=== PATIENT | female | born 1985 | race Caucasian/White ===

== ENCOUNTER 2022-07-21 08:34 | Outpatient (CLI) | payer SELFPAY ==
--- NOTE | 2022-07-21 08:45 | CRLHL7_ITS ---
For Patients: As a result of the Cures Act, medical imaging exams and procedure reports are released immediately into your electronic medical record. You may view this report before your referring provider. If you have questions, please contact your health care provider. INDICATION: First trimester scan, establish dates. TECHNIQUE: Real-time hurst-scale imaging of the pelvis was performed. FINDINGS: Sonographic imaging demonstrates a single living intrauterine gestation. The embryo demonstrates a regular cardiac rate measuring 171 beats per minute. The embryo`s crown-rump length measurement of 2.1 cm corresponds to a gestational age of 8 weeks 5 days with a sonographic due date of 02/25/23. There is a normal-appearing yolk sac. Right ovary measures 3.8 x 2.6 x 3.3 centimeters right ovarian corpus luteum cyst. Left ovary appears unremarkable with amount of fluid adjacent to the right ovary. IMPRESSION: Early intrauterine . Gestational age calculated at 8 weeks 5 days with a sonographic due date of 02/25/2023. Dictated by Julia Mccarty MD @ 07/21/2022 9:58:14 AM (Electronically Signed)
== END 2022-07-21 08:35 | disposition home or self-care (01) ==
LOC: US 08:36
PROVIDERS: PCP Family Medicine; Visit Provider Advanced Practice Midwife
DX: Z34.91 Encounter for supervision of normal pregnancy, unspecified, first trimester (principal); Z3A.08 8 weeks gestation of pregnancy
CPT/HCPCS: 76817

== ENCOUNTER 2022-07-21 09:45 | Outpatient (CLI) | payer BC, SELFPAY ==
[2022-07-21 14:25] LABS: Hepatitis B Surface Antigen* Negative (Negative)
[2022-07-21 14:28] LABS: HIV 1/2/P24 Combo Screen* Negative (Negative)
[2022-07-21 14:42] LABS: Hepatitis C Virus Antibody* Negative (Negative)
[2022-07-23 06:28] LABS: Rubella Antibody IgG 30.2 IU/mL
[2022-07-23 09:12] LABS: Rapid Plasma Reagin (RPR) Non Reactive (Non Reactive)
== END 2022-07-21 09:46 | disposition home or self-care (01) ==
PROVIDERS: PCP Family Medicine; Visit Provider Advanced Practice Midwife
DX: Z34.81 Encounter for supervision of other normal pregnancy, first trimester (principal); Z3A.08 8 weeks gestation of pregnancy
CPT/HCPCS: 86592; 86703; 86762; 86787; 86803; 86850; 86900; 86901; 87086; 87340

== ENCOUNTER 2022-08-19 13:23 | Outpatient (CLI) | payer BC, SELFPAY ==
[2022-08-19 16:04] LABS: Chloride* 100 mmol/L (96-114)
[2022-08-19 16:05] LABS: Potassium* 3.7 mmol/L (3.6-5.1); Sodium* 133 mmol/L (135-149)
[2022-08-19 16:07] LABS: Creatinine* 0.5 mg/dL (0.5-1.5); Estimated Glomerular Filt Rate 125 ml/min
[2022-08-19 16:08] LABS: Blood Urea Nitrogen* 15 mg/dL (5-24); Calcium* 9.1 mg/dL (8.4-10.6); Carbon Dioxide* 28 mmol/L (20-32); Glucose* 95 mg/dL (60-115)
== END 2022-08-19 13:24 | disposition home or self-care (01) ==
LOC: NFLDREF 13:24
PROVIDERS: PCP Family Medicine; Visit Provider Obstetrics & Gynecology
DX: O09.529 Supervision of elderly multigravida, unspecified trimester (principal); Z3A.12 12 weeks gestation of pregnancy
CPT/HCPCS: 80048; 81420

== ENCOUNTER 2022-10-08 13:54 | Outpatient (CLI) | payer BC, SELFPAY | END 2022-10-08 13:55 | disposition home or self-care (01) | LOC: US 13:55 | PROVIDERS: PCP Family Medicine; Visit Provider Pediatrics Neonatal-Perinatal Medicine | DX: O09.522 Supervision of elderly multigravida, second trimester (principal); Z3A.19 19 weeks gestation of pregnancy | CPT/HCPCS: 76811 ==

== ENCOUNTER 2022-12-05 12:56 | Outpatient (CLI) | payer BC, SELFPAY ==
--- NOTE | 2022-12-05 13:00 | CRLHL7_ITS ---
For Patients: As a result of the Century Cures Act, medical imaging exams and procedure reports are released immediately into your electronic medical record. You may view this report before your referring provider. If you have questions, please contact your health care provider. INDICATION: Third trimester scan, evaluate growth. COMPARISON: 10/08/2022 TECHNIQUE: Real time hurst scale imaging of the fetus was performed. FINDINGS: Sonographic imaging demonstrates a single living intrauterine gestation. Fetus demonstrates a regular cardiac rate of 141 beats per minute. Fetus has a vertex position. The placenta lies posteriorly. Amniotic fluid volume appears normal and there is a single deepest vertical pocket: 7.1 cm. INGE 23.9 cm. The estimated weight is 1513gm which lies at the greater than 97th %. On the prior OB ultrasound exam dated 10/08/2022 the estimated weight was at the greater than 97th%. BPD, HC and ACR greater than 97th percentile. FL 29th percentile. The HC/AC ratio measures 1.06 range (0.97-1.18). IMPRESSION: Sonographic gestational age 30 weeks 4 days and sonographic due date 02/09/2023. Sonographic age 18 days ahead of the clinical age. Estimated weight greater than 97th percentile. BPD/HC/AC greater than 97th percentile. Four-quadrant INGE upper limits of normal measuring 23.9 cm. Dictated by Cj Rowley MD @ 12/05/2022 3:00:52 PM (Electronically Signed)
== END 2022-12-05 12:57 | disposition home or self-care (01) ==
LOC: US 12:57
PROVIDERS: PCP Family Medicine; Visit Provider Advanced Practice Midwife
DX: O09.523 Supervision of elderly multigravida, third trimester (principal); Z3A.28 28 weeks gestation of pregnancy
CPT/HCPCS: 76816; 86592; 87086

== ENCOUNTER 2022-12-16 12:53 | Outpatient (CLI) | payer BC, SELFPAY ==
--- NOTE | 2022-12-16 13:00 | CRLHL7_ITS ---
For Patients: As a result of the Century Cures Act, medical imaging exams and procedure reports are released immediately into your electronic medical record. You may view this report before your referring provider. If you have questions, please contact your health care provider. INDICATION: Third trimester scan, evaluate growth. COMPARISON: 12/05/2022 TECHNIQUE: Real time hurst scale imaging of the fetus was performed. FINDINGS: Sonographic imaging demonstrates a single living intrauterine gestation. Fetus demonstrates a regular cardiac rate of 139 beats per minute. Fetus has a vertex oblique position. The placenta lies posterior. Amniotic fluid volume appears normal and there is a single deepest vertical pocket: 5.5 cm. INGE 20.8 cm. The estimated weight is 1818gm which lies at the 96th %. On the prior OB ultrasound exam dated 12/05/2022 the estimated weight was at the greater than 97th%. BPD, HC, AC greater than 97th percentile. FL 14th percentile. The HC/AC ratio measures 1.09 range (0.96-1.12). IMPRESSION: Sonographic gestational age 32 weeks 4 days and sonographic due date 02/06/2023. Sonographic age is 21 days ahead of the clinical age. Estimated weight 96th percentile. BPD/HC/AC greater than 97th percentile. INGE 20.8 cm, normal. Dictated by Cj Rowley MD @ 12/16/2022 2:38:55 PM (Electronically Signed)
== END 2022-12-16 12:54 | disposition home or self-care (01) ==
LOC: US 12:54
PROVIDERS: Visit Provider Advanced Practice Midwife
DX: Z34.93 Encounter for supervision of normal pregnancy, unspecified, third trimester (principal); Z3A.32 32 weeks gestation of pregnancy
CPT/HCPCS: 76816

== ENCOUNTER 2023-02-06 11:00 | Outpatient (RCR) | payer BC, SELFPAY | END 2023-06-06 23:59 | disposition home or self-care (01) | PROVIDERS: PCP Family Medicine; Visit Provider Advanced Practice Midwife | DX: O34.82 Maternal care for other abnormalities of pelvic organs, second trimester (principal); N81.89 Other female genital prolapse; O26.892 Other specified pregnancy related conditions, second trimester; R10.2 Pelvic and perineal pain; M54.50 Low back pain, unspecified; Z51.89 Encounter for other specified aftercare | CPT/HCPCS: 97110; 97140; 97162; 97535 ==

== ENCOUNTER 2023-03-01 10:14 | Inpatient (IN) | payer BC, SELFPAY ==
[2023-03-01] VITALS (20 sets, daily range): BP systolic 129–158; BP diastolic 72–98; PULSE 56–85; RESP 16–18; TEMP 36.4–36.7; O2SAT 97; BMI 29.9
[2023-03-01 10:01] LABS: Amnisure Rom* POSITIVE
--- NOTE | 2023-03-01 11:23 | W.PM.LDBA ---
Subjective History of Present Illness Narrative: Marlen Mccord is a 37 yo at 40 2/7 weeks gestation being admitted to Labor and Delivery for PROM. She is supported by her , Karan. She reports that she woke up this morning with some mild cramping and noted a large gush of fluid around 630 am of clear/brownish/yellow fluid. She continues to leak clear fluid. Her full history and physical was dictated by Brittany Contreras CNM on 02/10/23. Please see this for details. OB PROBLEM LIST 1. History of pelvic floor weakness after last , PT referral: placed 07/31/22 2. AMA Level II ultrasound: WNL, elevated INGE Genetic Screening: [id number] negative 3. Elevated INGE, per Dr. Orr (WNL but higher range, 20.8) Recommended fluid check/growth at 28-30 weeks: US ordered 11/07 High normal fluid at 28 weeks, INGE 23.9. Discussed repeat in 1-2 weeks, Dr. Manning agreed with plan Follow up at 29 weeks: 20.8 4. Suspected Macrosomia. EFW 96% at 29.4 weeks. OB - Problem Based A/P Additional Plan (1) PROM (premature rupture of membranes): Status: Acute (2) 40 weeks gestation of : Status: Acute (3) AMA (advanced maternal age) multigravida 35+: Status: Acute Plan ASSESSMENT:? 37 at 40 2/7 weeks gestation? complicated by:?AMA, suspected macrosomia, pelvic floor weakness Labor type: Spontaneous, Early labor? Category 1 FHR pattern.?? Labor complicated by: PROM? GBS negative? ? PLAN:? 1. Routine intrapartum cares as ordered. Reviewed options including expectant management x12 hours, starting pitocin without exam, or cervical exam to start pitocin or cytotec. She prefers expectant management at this time. Will reevaluate plan this evening. ? 2. Monitoring per policy, intermittent? 3. Planning unmedicated . Desires water . Consent signed. Hep C negative. Candidate for analgesia of choice if desired.?? 4. Patient encouraged to reposition and ambulate to promote physiologic labor and . Encouraged to do labor warm up, nipple stim, or can consider membrane sweep to encourage labor. 5. Anticipate ? Delivery/Labor/Induction Plan Plan: expectant management OB Exam Physical Exam Vital signs: Temp Pulse Resp BP 97.8 F 67 16 134/87 03/01/23 10:55 03/01/23 09:52 03/01/23 10:55 03/01/23 09:52 Narrative: Vitals Reviewed Constitutional:? Alert and oriented x3 HEENT:? Normocephalic, atraumatic Neck:? Supple Lungs:? Clear to auscultation bilaterally Heart:? Regular rate and rhythm, no murmur, rub or gallop Abdomen:? Soft, nontender, and gravid. Vertex by Koko's, confirmed with bedside US. Extremities:? No edema or erythema Cervix: Deferred due to ROM NST: 125 bpm/moderate variability/15x15 accelerations/no decelerations/occasional contractions Detailed Labor and Delivery Exam Patient Gravid: Yes
[2023-03-01] MEDS: lidocaine HCL 2 % JELLY (TOP) STERILE 6 ML TOPICAL (16:45)
--- NOTE | 2023-03-01 16:55 | W.PM.OBVAGDE ---
OB Procedure Vag Delivery Mother Details Mother Details: The patient is a 37 year-old, 2, now Para 2, admitted on 03/01/23 at 40 2/7 weeks gestation. She was expectantly managed and encouraged labor with ambulation, miles circuit, and labor warm-ups. She started to have painful regular contractions about 1435 when she requested to enter the tub. : 2 Para: 2 Weeks Gestation: 40.2 Admission Date: 03/01/23 Additional Details Amniotic Membrane Status: SROM Amniotic Membrane Rupture Date: 03/01/23 Amniotic Membrane Rupture Time: 06:30 Amniotic Membrane Fluid Description: Meconium Stained (Light/Thin) and Yellow Analgesia/Anesthesia Type: None Waterbirth: Yes Pitcoin: No (Declined AMTSL) Intrapartal Events: Precipitous Labor <3 Hrs Labor Onset: 14:35 Complete: 15:56 Pushin:56 Heart: heart tones during second stage were assess via doptones during pushing, remained reassuring through contraction and after. Delivery Details Delivery Date: 03/01/23 Delivery Time: 16:15 Route of delivery: Gender: Male Infant Viability: Alive; Heart Rate Present Position at Delivery: OA Delivery Details: Patient was admitted for PROM. She progressed normally. SROM noted at 0630 with light meconium stained fluid. Patient was assumed complete with pushing at 1556. of a viable male at 1615 in hands and knees position over seat in the tub. Vertex delivered OA. Head was born underwater then mom brought her butt upward bringing head above water. Head was held to prevent re-submersion. No nuchal cord or shoulder. Body delivered easily and without incident. Mom was assisted to her back and her leg was lifted over Infant. He was then passed to mothers abdomen with a vigorous cry. Cord was clamped and cut at > 5 minutes. APGARS were 9 at one minute and 8 at five minutes respectively. Mouth was bulb suctioned. Intact placenta with a 3 vessel cord delivered spontaneously at 1637. Fundus firm. Small perineal abrasion identified, not bleeding, no repair. QBL 125 cc. Mother and baby stable; mother plans to breastfeed. weight pending. 1 Minute Interval Total Score: 9 5 Minute Interval Total Score: 8 Additional Details Shoulder Dystocia: No Placenta Delivery Time: 16:37 Placental Delivery Description: Spontaneous Procedure Done: Global Blood Loss: 125 Laceration: None Blood Loss Measurement Type: QBL Bakri Used: No Sponge/Need Count Correct: Yes Event Summary Status: Mother and were stable after delivery. Disposition: floor
[2023-03-01] MEDS: ACETAMINOPHEN 500 MG TABLET 1000 MG PO (17:56)
[2023-03-01 18:43] LABS: Hematocrit 36.3 % (33.0-51.0); Hemoglobin* 12.7 gm/dL (12.0-16.0); Mean Corpuscular HGB Conc 35 gm/dL (32-36); Mean Corpuscular Hemoglobin 33 pg (26-34); Mean Corpuscular Volume 93 fL (80-100); Platelet Count* 157 K/uL (140-440); Red Blood Count 3.91 m/uL (4.00-5.20); White Blood Count* 15.01 K/uL (4.50-11.00)
[2023-03-01 18:52] LABS: Slide Review Reflex No
[2023-03-01 18:59] LABS: Alanine Aminotransferase* 22 U/L (4-35); Aspartate Amino Transferase* 38 U/L (12-35); Blood Urea Nitrogen* 12 mg/dL (5-24); Creatinine* 0.6 mg/dL (0.5-1.5); Est. Creatinine Clearance* 132.02; Estimated Glomerular Filt Rate 120 ml/min
[2023-03-01] MEDS: IBUPROFEN 600 MG TABLET PO (23:06)
[2023-03-02 02:03] VITALS: BP 120/78; PULSE 81; RESP 16; O2SAT 94
[2023-03-02 05:29] VITALS: BP 127/84; PULSE 71; RESP 18; O2SAT 95
[2023-03-02] MEDS: DOCUSATE SODIUM 100 MG CAPSULE PO (07:46)
[2023-03-02] MEDS: ACETAMINOPHEN 500 MG TABLET 1000 MG PO (07:46)
[2023-03-02 07:58] VITALS: RESP 18; TEMP 36.8
--- NOTE | 2023-03-02 08:48 | PM.OBDSVD1 ---
DS: Providers Provider Date Seen: 03/02/23 Date of admission: 03/01/23 10:14 Primary care physician: Not a Local Provider Admitting Clinician: Genoveva Scott CNM Attending Physician on discharge: Genoveva Scott CNM Date of Discharge: 03/02/23 DS: Diagnosis Discharge Diagnosis (1) care and examination immediately after delivery: Status: Acute (2) Lactating mother: Status: Acute (3) Gestational hypertension: Status: Acute Exam Const: Vital Signs, click to edit/add: Vital Signs - 24 hr 03/01/23 09:34 03/01/23 09:52 03/01/23 10:55 Temperature 97.8 F Pulse Rate 64 67 Pulse Rate [Pulse Oximeter] Respiratory Rate 16 Blood Pressure 138/92 H 134/87 Blood Pressure [Le ft Arm] Pulse Oximetry Oxygen Delivery Mo thod 03/01/23 12:35 03/01/23 13:35 03/01/23 13:44 Temperature 98.1 F 97.6 F Pulse Rate 61 Pulse Rate [Pulse Oximeter] Respiratory Rate 16 Blood Pressure 134/86 Blood Pressure [Le ft Arm] Pulse Oximetry Oxygen Delivery Mo thod 03/01/23 14:35 03/01/23 15:35 03/01/23 16:38 Temperature 97.6 F 97.5 F L Pulse Rate 71 Pulse Rate [Pulse Oximeter] Respiratory Rate 16 16 Blood Pressure 135/74 Blood Pressure [Le ft Arm] Pulse Oximetry Oxygen Delivery Mo thod 03/01/23 16:53 03/01/23 17:08 03/01/23 17:23 Temperature Pulse Rate 69 77 68 Pulse Rate [Pulse Oximeter] Respiratory Rate Blood Pressure 129/72 143/79 H 132/83 Blood Pressure [Le ft Arm] Pulse Oximetry Oxygen Delivery Mo thod 03/01/23 17:38 03/01/23 17:53 03/01/23 17:55 Temperature Pulse Rate 72 67 63 Pulse Rate [Pulse Oximeter] Respiratory Rate Blood Pressure 134/81 158/95 H 136/88 Blood Pressure [Le ft Arm] Pulse Oximetry Oxygen Delivery Mo thod 03/01/23 18:08 03/01/23 18:23 03/01/23 18:25 Temperature Pulse Rate 85 56 L 64 Pulse Rate [Pulse Oximeter] Respiratory Rate Blood Pressure 149/96 H 155/98 H 145/93 H Blood Pressure [Le ft Arm] Pulse Oximetry Oxygen Delivery Me thod 03/01/23 18:38 03/01/23 21:04 03/02/23 02:03 Temperature 97.5 F L Pulse Rate 82 Pulse Rate [Pulse Oximeter] 73 81 Respiratory Rate 18 16 Blood Pressure 140/92 H Blood Pressure [Le ft Arm] 134/88 120/78 Pulse Oximetry 97 94 Oxygen Delivery Me thod Room Air Room Air 03/02/23 05:29 03/02/23 07:58 Temperature 98.4 F Pulse Rate Pulse Rate [Pulse Oximeter] 71 Respiratory Rate 18 18 Blood Pressure Blood Pressure [Le ft Arm] 127/84 Pulse Oximetry 95 Oxygen Delivery Me thod Room Air OB - DS: Summary Hospital Course Hospital Course: Marlen Mccord is a 37 year old G 2 P 2 at 40 2/7 weeks gestation that was admitted to the Center on 03/01/23 for PROM followed by spontaneous labor. She had an uncomplicated vaginal delivery in the tub. She delivered a viable male infant. The patient feels well. She had mild range blood pressures meeting criteria for GHTN. Labs were normal and blood pressures have normalized since. ?The pain is well controlled with current medications. ?She has no new complaints. ?She is breast feeding and reports things are going well.? the patient has done well.? Vitals have been stable.? She has remained afebrile.? Has a good appetite, is tolerating a general diet. ?She is voiding without difficulty.? She is passing gas and has not had a bowel movement.? She is ambulating and denies any dizziness.? Has small amount of rubra lochia. ?She is planning for her to get a vasectomy for prevention. Peripartum Data delivery method: Vaginal Laceration description: None complications: none Gender: Male Infant Discharge Plan: Home Status at Discharge Functional status at discharge: independent ambulation Overall status at discharge: patient is progressing back to baseline Time Spent with Patient Time attestation: Total time spent providing and/or coordinating discharge services: Discharge Plan Discharge Disposition: Home, Self-Care Date of Admission: 03/01/23 10:14 Attending Provider on Discharge: Genoveva Scott Primary Care Provider: Provider,Not a Local Condition: Stable Anticipated Discharge Date/Time: 03/02/23 16:30 Discharge Medications: New acetaminophen 500 mg Tablet 1,000 mg PO Q6H PRNQty: 0 0RF docusate sodium 100 mg Capsule 100 mg PO DAILY Qty: 90 0RF ibuprofen 600 mg Tablet 600 mg PO Q6H PRNQty: 60 0RF Continued prenat.vits,gus,[id number]-[id number]-[id number] Tablet 1 tab PO QDAY calcium-magnesium 300-300 mg tablet 1 tab PO QDAY Rx Instructions: administer with a meal loratadine 10 mg tablet 10 mg PO QDAY Discontinued ferrous sulfate 27 mg iron tablet 27 mg PO QDAY Discharge Orders: Discharge Order (Routine); Ordered 03/02/23 Ordered By: Genoveva Scott Patient Education: OB Over the Counter Medication Information, OB Vaginal/Breast Feeding Additional Instructions: Discharge instructions were reviewed with the patient including signs and symptoms of infection and home going medications Nothing vaginally for 6 weeks: no tampons or intercourse Off Work or School for 6 weeks Follow Up [facility] for a BP check in 1 week Call with BP greater than or equal to 160/110 2-week visit: discuss infant feeding concerns, review control options and screen for anxiety/depression. 6-week visit for an annual exam. consultation services are available to all mothers and babies for the first year after delivery.? To make an appointment, please call [phone]. Activity Level: Activity as Tolerated Discharge Diet: Regular Follow Up Appointments: [facility] [Provider Group] (1 week for BP check, can combine with 1-2 week pp visit. 6 week for pp well woman check.) Forms: [employer] Info Instructions
[2023-03-02 08:55] VITALS: BP 121/86; PULSE 71
[2023-03-02 12:00] VITALS: BP 122/82; PULSE 71; RESP 18; TEMP 36.7
[2023-03-02] MEDS: IBUPROFEN 600 MG TABLET PO (14:43)
[2023-03-02 16:00] VITALS: BP 138/89; PULSE 71; RESP 18; TEMP 36.8
== END 2023-03-02 17:10 | disposition home or self-care (01) | DRG 560 ==
LOC: OB OUT 10:15 → OB 10:15
PROVIDERS: Admitting Provider Advanced Practice Midwife; Visit Provider Advanced Practice Midwife
DX: O42.02 Full-term premature rupture of membranes, onset of labor within 24 hours of rupture (principal); O77.0 Labor and delivery complicated by meconium in amniotic fluid; O62.3 Precipitate labor; O13.4 Gestational [pregnancy-induced] hypertension without significant proteinuria, complicating childbirth; Z3A.40 40 weeks gestation of pregnancy; Z37.0 Single live birth
CPT/HCPCS: 36415; 82565; 84112; 84450; 84460; 84520; 85027; A9270

== ENCOUNTER 2023-03-05 20:28 | Inpatient (IN) | payer BC, SELFPAY ==
[2023-03-05] VITALS (9 sets, daily range): BP systolic 119–160; BP diastolic 82–108; PULSE 68–83; RESP 18–20; TEMP 36.4–36.8; O2SAT 96–99; BMI 27.2; BMI 27.3
[2023-03-05] MEDS: NIFEdipine 30 MG TAB.ER.24 PO ×2 (20:45→23:03)
[2023-03-05 21:07] LABS: Hematocrit 37.7 % (33.0-51.0); Mean Corpuscular HGB Conc 35 gm/dL (32-36); Mean Corpuscular Hemoglobin 33 pg (26-34); Mean Corpuscular Volume 95 fL (80-100); Platelet Count* 199 K/uL (140-440); Red Blood Count 3.99 m/uL (4.00-5.20); White Blood Count* 8.03 K/uL (4.50-11.00)
[2023-03-05 21:11] LABS: Slide Review Reflex No
[2023-03-05] MEDS: MAGNESIUM IV 4 GM/100 ML PIGGYBACK IVPB (21:13)
--- NOTE | 2023-03-05 21:21 | PM.GYNHPNOR ---
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 She is . Her course was complicated by elevated blood pressures on the day of delivery on day 1 her highest blood pressures were 130s/ 90s she was discharged home with instructions to contact the center she had any signs or symptoms of severe preeclampsia. She has an appointment scheduled with Genoveva Scott CNM tomorrow for a BP check. Serum preeclampsia labs on 03/01/23 were: Hemoglobin 12.7, platelets 157, BUN 12, creatinine 0.6, AST 38 (H) and ALT 22. Suri called the Center this evening at approximately 7:30 a.m. stating that she was having a headache and blurred vision. She had used a friend's blood pressure cuff and her blood pressure was 150s/90s so the Center nurses recommended that she present to the emergency room for evaluation. In the triage area of the ED her blood pressure was 160/105 so I recommended she be directly admitted to Med/Surg. She will be getting IV magnesium sulfate for 24 hours, preeclampsia labs were ordered admission and another set tomorrow morning. I will also be starting oral labetalol: 200 mg p.o. b.i.d. and nifedipine ER 30 mg tonight with 1st dose being at 10:00 p.m.. The patient denies right upper quadrant/midepigastric pain, nausea/vomiting and swelling. She notes lower pelvic cramping and pretty significant pain when she is up being active. She also notes heavier vaginal bleeding when she is active. Reassured her that both of those things are normal and I ordered an abdominal binder for her to use when she is up walking see if this helps alleviate some of her pelvic discomfort. She otherwise had an uncomplicated did not have any problems with blood pressure with her 1st delivery 5 years ago. MEDICAL HISTORY: 1. Neurofibroma 2. History of fainting 3. severe preeclampsia: blood pressure criteria 4. Pelvic floor weakness (Prolapse) SURGICAL HISTORY: 1. OBSTETRIC/GYNECOLOGIC HISTORY: 1. 02/08/2018. , female, summer, 7 lb 4 oz, 38 wks, [facility], no complications. 2. 03/01/2023. , male, Ray. 8#7oz. 40w2d. [facility]. Water . Readmitted w/ severe preeclampsia on PPD#4 (03/05/23) Cis- gender, heterosexual woman Sexually transmitted infections: No Pelvic inflammatory disease: No MRSA infection: No. History of abnormal Pap smears: No. Most recent Pap smear was on 2017 and was normal. Next due at her 6 week visit. SOCIAL HISTORY: Relationship status: . Spouse/Partner: Karan. Smoker: Tobacco: No, lifetime nonsmoker E-cigarettes: No Alcohol consumption: None during the Illicit or Recreational drug use: No Concerns for safety at home/work: No. Would like to discuss issues of abuse: No. Dietary restrictions: No Exercise: Walking during the FAMILY HISTORY: 1. Melanoma: Father Negative for recurrent defects, stillbirth, recurrent loss, mental disabilities, genetic or inherited disorders. ALLERGIES: Meds Home Medications and Allergies Home Medications Medication Instructions Recorded Confirmed Type calcium-magnesium 300 mg-300 mg 1 tab PO QDAY 07/21/22 03/01/23 History tablet loratadine 10 mg tablet 10 mg PO QDAY 07/21/22 03/01/23 History prenat.vits,gus,mzw-ytnx-phssj 1 tab PO QDAY 07/21/22 03/01/23 History Allergies Allergy/AdvReac Type Severity Reaction Status Date / Time seasonal Allergy Mild sneezing, Uncoded 02/24/23 10:39 congestion PFSH Active Problems Severe pre-eclampsia, (Acute 03/05/23) ?O14.15 - Severe pre-eclampsia, complicating the puerperium (ICD-10) Gestational hypertension (Acute) ?O13.9 - Gestational [-induced] hypertension without significant proteinuria, unspecified trimester (ICD-10) Lactating mother (Acute) ?Z39.1 - Encounter for care and examination of lactating mother (ICD-10) Pelvic floor weakness in female (Acute) ?N81.89 - Other female genital prolapse (ICD-10) Medical History Normal spontaneous vaginal delivery ?O80 - Encounter for full-term uncomplicated delivery (ICD-10) Neurofibroma ?D36.10 - Benign neoplasm of peripheral nerves and autonomic nervous system, unspecified (ICD-10) History of fainting ?Z91.89 - Other specified personal risk factors, not elsewhere classified (ICD-10) Surgical History History of vacuum extraction assisted delivery ?Z87.59 - Personal history of other complications of , childbirth and the puerperium (ICD-10) Family History Father Melanoma Social History What is your current living situation: declined to answer Problems where you live: declined to answer In the past 12 months, utilities in danger of being shut off: declined to answer In the past 12 mos, have been you worried that your food would run out before you had money to buy more?: declined to answer In the past 12 mos, the food you bought just didn't last and you didn't have money to buy more?: declined to answer Smoking Status: Never smoker How often does anyone, including family, friends and others, physically hurt you: How often does anyone, including family, friends and others, insult or talk down to you: How often does anyone, including family, friends and others, threaten you with harm: How often does anyone, including family, friends and others, scream or curse at you: Little interest or pleasure in doing things: not at all Feeling down, depressed, or hopeless: not at all Reproductive Health History Date of last pap smear: 2018 History of abnormal pap smear: No : 2 Para: 2 # of abortions spontaneous: 0 # of abortions induced: 0 History of multiple gestations: No History of pregnancies: No History of ectopic pregnancies: No History of sexually transmitted diseases: No Treatment for infertility: No 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 VITAL SIGNS: as noted in nursing notes HEAD: Normocephalic, atraumatic. THYROID: no masses, nodularity, tenderness or enlargement. LUNGS: Clear to auscultation bilaterally without wheezes, rales or rhonchi. HEART: Regular rate and rhythm with normal S1 and S2. No gallop, rub or murmur. ABDOMEN: Soft, nontender, nondistended, with normal bowels sounds throughout. FUNDUS: 4 cm below the umbilicus, nontender. EXTREMITIES: No cyanosis, clubbing, or edema. No varicosities. NEUROLOGIC: Normal gait and balance. Normal deep tendon reflexes at bilateral patella 2+/2, equal without clonus. PSYCHIATRIC: alert and oriented x3. Normal speech pattern, eye contact and affect. Patient became tearful when she learned that she would have to be admitted to the hospital. SKIN: Warm, dry, and well perfused. Good turgor. No lesions, nodules or rashes. 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 Magnesium sulfate load 4 g IV x1 2. After magnesium sulfate load then 2 g IV/hr for 24 hours. 3. Serum preeclampsia labs now and repeat in the morning 4. Patient received nifedipine immediate release 10 mg by mouth in the ED triage room as she did not have the access. 5. Start anti hypertensives orally: Nifedipine ER 30 mg 1st dose 10:00 p.m. 03/05/2023 Labetalol 200 mg p.o. b.i.d. with 1st dose at 10:00 p.m. on 03/05/2023. 6. Abdominal binder ordered for the patient to wear as needed when she is ambulating to help decrease pelvic pressure and discomfort. 7. Treat severe range pressure with IV labetalol protocol followed by hydralazine if the labetalol is unsuccessful at treatment. 8. Dr. Sandra Hernández will be assuming care at 7:00 a.m. on 03/06/2023 9. 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 10. Regular diet. 11. Preeclampsia lab results from 8:50 p.m. on 03/05/2023: Hemoglobin 13.0, platelets 199, BUN 14, creatinine 0.7, AST 49, ALT 40.
[2023-03-05 21:23] LABS: Alanine Aminotransferase* 40 U/L (4-35); Aspartate Amino Transferase* 49 U/L (12-35); Blood Urea Nitrogen* 14 mg/dL (5-24); Creatinine* 0.7 mg/dL (0.5-1.5); Est. Creatinine Clearance* 113.16; Estimated Glomerular Filt Rate 116 ml/min
[2023-03-05] MEDS: LACTATED RINGERS 1000 ML 1,000 ML 75 ML IV (21:26)
[2023-03-05 22:44] LABS: Creatinine Urine 18.8 mg/dL; Total Protein Urine 18 mg/dL
[2023-03-05] MEDS: LABETALOL HCL 100 MG TABLET 200 MG PO (23:03)
[2023-03-05] MEDS: IBUPROFEN 600 MG TABLET PO (23:31)
[2023-03-06] VITALS (7 sets, daily range): BP systolic 105–129; BP diastolic 76–86; PULSE 72–91; RESP 16–18; TEMP 36.6; O2SAT 96–99
[2023-03-06] MEDS: ACETAMINOPHEN 500 MG TABLET 1000 MG PO ×3 (03:10→22:40)
[2023-03-06] MEDS: IBUPROFEN 600 MG TABLET PO ×3 (06:09→19:21)
--- NOTE | 2023-03-06 06:47 | PC.NURSE ---
SHIFT NOTE -: Pt pleasant and cooperative, A&O. Afebrile, oxygen saturations >90% on room air. Last BP was 105/81, checked with OB charge nurse who said that the BP was stable and to keep the current POC. Pt still reports having a WILKS, PRN Tylenol and Ibuprofen given with some relief, otherwise pt denies pain. Denies SOB, CP, and N/V. Reports that she no longer has blurry vision. Pt up independently in the room, tolerating well. Pt's and baby spent the night, supportive and helpful. Pt informed on s/s to report and acknowledges understanding. Pt in bed with call light within reach.
--- NOTE | 2023-03-06 09:38 | PM.OBPNVD1 ---
OB - PN:Subj Subjective Time Seen by Provider: 11:00 Date Seen: 03/06/23 Interval history: She is a 37-year-old G2 now P2 woman who is on day 5 after normal spontaneous vaginal delivery and hospital day 2 after admission for severe preeclampsia complicating course. Diagnosis of severe preeclampsia was based on blood pressure criteria. She was started on magnesium sulfate at around 5:00 p.m. on 03/06/2023. She was written for labetalol 200 mg b.i.d., but her blood pressure this morning was on the low side of normal. Thus, her dose was held today. She is experiencing some blurry vision and difficulty focusing her gaze. She has a little bit of headache during the day. She is well. She is having no vaginal bleeding. She has some low uterine/abdominal tenderness. No shortness of breath. OB - PN: Obj Exam Physical Exam: Vital signs: Temp Pulse Resp BP Pulse Ox O2 Del Method 97.9 F 91 16 114/76 97 Room Air 03/06/23 08:17 03/06/23 08:17 03/06/23 08:17 03/06/23 08:17 03/06/23 08:17 03/06/23 08:17 Last elevated blood pressure was 131/94 at 10:00 p.m. on 03/05/2023. Last blood pressure elevated to severe range was at 8:30 p.m. on 03/05/2023. Narrative: General: Pleasant, no acute distress Heart: Regular rate and rhythm, no murmur or gallop Lungs: Clear to auscultation bilaterally Abdomen: Soft, nontender, fundus well below umbilicus Lower extremities: No edema or erythema OB - PN: Obj Data Labs Labs: Laboratory Results - last 24 hr 03/05/23 03/05/23 20:58 22:15 WBC 8.03 RBC 3.99 L Hgb 13.0 Hct 37.7 MCV 95 MCH 33 MCHC 35 Plt Count 199 BUN 14 Creatinine 0.7 Estimated Creat Clear 113.16 Estimated GFR 116 AST 49 H ALT 40 H Urine Creatinine 18.8 Protein/Creatinin Ratio 0.90 H Urine Total Protein 18 Repeat labs at 1037 this morning: Hemoglobin 13.4, platelets 217 Cr 0.6 AST 57, ALT 41 OB - PN: A/P Vaginal Delivery Assessment and Plan (1) Severe pre-eclampsia, : Status: Acute Assessment and Plan: Continue magnesium sulfate for seizure prophylaxis for 24 hours. Hold this morning's labetalol dose. We will follow blood pressures throughout the day to determine the need for the evening dose. Repeat HELLP labs now. Strict ins and outs, total q.4 hours. Stop maintenance fluids. Restrict p.o. intake to 2 L a day. Plan Comments: Anticipate discharge tomorrow provided that blood pressures are well controlled.
[2023-03-06 10:45] LABS: Basophils Absolute Auto 0.01 K/uL (0.00-0.30); Basophils Percent Auto 0.1 % (0.0-3.0); Eosinophils Absolute Auto 0.11 K/uL (0.00-0.50); Eosinophils Percent Auto 1.5 % (0.0-7.0); Hematocrit 38.4 % (33.0-51.0); Hemoglobin* 13.4 gm/dL (12.0-16.0); Immature Granulocytes Abs Auto 0.01 K/uL (0.00-0.30); Immature Granulocytes Pct Auto 0.1 %; Lymphocytes Absolute Auto 1.58 K/uL (0.90-2.90); Lymphocytes Percent Auto 21.8 % (20-44); Mean Corpuscular HGB Conc 35 gm/dL (32-36); Mean Corpuscular Hemoglobin 33 pg (26-34); Mean Corpuscular Volume 93 fL (80-100); Neutrophils Absolute Auto 5.18 K/uL (1.7-7.0); Neutrophils Percent Auto 71.5 % (42.0-72.0); Platelet Count* 217 K/uL (140-440); RDW Coefficient of Variation % 12.1 % (11.5-15.5); Red Blood Count 4.11 m/uL (4.00-5.20); White Blood Count* 7.25 K/uL (4.50-11.00)
[2023-03-06 10:49] LABS: Slide Review Reflex No
[2023-03-06 10:51] LABS: Alanine Aminotransferase* 41 U/L (4-35); Aspartate Amino Transferase* 57 U/L (12-35); Creatinine* 0.6 mg/dL (0.5-1.5); Est. Creatinine Clearance* 132.02; Estimated Glomerular Filt Rate 120 ml/min
[2023-03-06 10:52] LABS: Blood Urea Nitrogen* 10 mg/dL (5-24)
--- NOTE | 2023-03-06 19:40 | PC.NURSE ---
shift note: vss stable. pt states she has constant frontal WILKS that's unrelieved by ibuprofen and ice yolanda to back of neck. Clonus test neg. Pt states she feels her eyelids are heavy and she's sleepy. Dr. Hernández contacted via phone and [facility] during the day with pt's concerns and updates on pt's condition. Orders for a.m labs, dc LR, give PRN tylenol. LS clr. Pt voided 2750cc in 8 hrs. IV patent.
[2023-03-07] VITALS: BP 121/86; PULSE 78; RESP 18; TEMP 36.6; O2SAT 99
[2023-03-07 02:00] VITALS: BP 117/88; PULSE 70; RESP 16; O2SAT 94
[2023-03-07] MEDS: IBUPROFEN 600 MG TABLET PO ×2 (03:02→09:05)
[2023-03-07] MEDS: ACETAMINOPHEN 500 MG TABLET 1000 MG PO ×2 (05:12→11:33)
[2023-03-07 06:00] VITALS: BP 125/92; PULSE 70; RESP 18; O2SAT 98
--- NOTE | 2023-03-07 06:55 | PC.NURSE ---
Addendum entered by Carmen Braxton RN 03/07/23 07:21: Blood pressures checked Q2H per MD verbal order, highest BP overnight was 125/92. Original Note: shift note : Pt pleasant and cooperative, A&O. Still reports a WILKS 5-03/23, MD made aware, alternating Tylenol and Ibuprofen with some relief. Pt reports the heaviness that she was previously having in her eyelids is now gone. Mag gtt stopped at 2113 per protocol, HS PO blood pressure medications held per MD order. Pt up to the BR with a SBA.
[2023-03-07 07:16] LABS: Basophils Absolute Auto 0.02 K/uL (0.00-0.30); Basophils Percent Auto 0.3 % (0.0-3.0); Eosinophils Absolute Auto 0.16 K/uL (0.00-0.50); Eosinophils Percent Auto 2.5 % (0.0-7.0); Hemoglobin* 13.3 gm/dL (12.0-16.0); Immature Granulocytes Abs Auto 0.01 K/uL (0.00-0.30); Immature Granulocytes Pct Auto 0.2 %; Lymphocytes Absolute Auto 1.45 K/uL (0.90-2.90); Lymphocytes Percent Auto 22.2 % (20-44); Mean Corpuscular HGB Conc 34 gm/dL (32-36); Mean Corpuscular Hemoglobin 32 pg (26-34); Mean Corpuscular Volume 94 fL (80-100); Monocytes Percent Auto 6.6 % (0.0-11.0); Neutrophils Absolute Auto 4.45 K/uL (1.7-7.0); Neutrophils Percent Auto 68.2 % (42.0-72.0); Platelet Count* 204 K/uL (140-440); RDW Coefficient of Variation % 11.9 % (11.5-15.5); Red Blood Count 4.16 m/uL (4.00-5.20); White Blood Count* 6.52 K/uL (4.50-11.00)
[2023-03-07 07:30] LABS: Slide Review Reflex No
[2023-03-07 07:42] LABS: Aspartate Amino Transferase* 38 U/L (12-35); Creatine Kinase* 103 U/L (41-117)
[2023-03-07 07:43] LABS: Alanine Aminotransferase* 36 U/L (4-35); Blood Urea Nitrogen* 13 mg/dL (5-24)
[2023-03-07 08:00] VITALS: BP 135/90; PULSE 82; RESP 16; TEMP 36.6; O2SAT 98
[2023-03-07 10:00] VITALS: BP 135/94; PULSE 66; RESP 16
--- NOTE | 2023-03-07 10:03 | P.DS_ITS ---
DS: Providers Provider Date Seen: 03/07/23 Date of admission: 03/05/23 21:27 Primary care physician: Not a Local Provider Admitting Clinician: Arlette Camargo MD Attending Physician on discharge: Sandra Hernández MD Date of Discharge: 03/07/23 DS: Diagnosis Discharge Diagnosis (1) Severe pre-eclampsia, : Status: Acute Problem details: Readmission 03/05 - 03/07/23 for IV magnesium sulfate Discharge Plan Discharge Disposition: Home, Self-Care Date of Admission: 03/05/23 21:27 Attending Provider on Discharge: Sandra Hernández Primary Care Provider: Provider,Not a Local Condition: Improved Anticipated Discharge Date/Time: 03/07/23 10:38 Discharge Medications: New nifedipine 30 mg Tablet Extended Release 24hr 30 mg PO HS Qty: 30 0RF Continued calcium-magnesium 300-300 mg tablet 1 tab PO DAILY Rx Instructions: administer with a meal loratadine 10 mg tablet 10 mg PO DAILY PNV [id number] fumarate-FA [] 28 mg iron- 800 mcg tablet 1 tab PO DAILY acetaminophen 500 mg Tablet 1,000 mg PO Q6H PRNQty: 0 0RF docusate sodium 100 mg Capsule 100 mg PO DAILY Qty: 90 0RF ibuprofen 600 mg Tablet 600 mg PO Q6H PRNQty: 60 0RF Discharge Orders: Discharge Order (Routine); Ordered 03/07/23 Ordered By: Sandra Hernández Patient Education: Nifedipine (By mouth), OB High Blood Pressure DC Additional Instructions: Check BP daily Call with blood pressure greater than or equal to 150 / 100. 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 Diagnosis of severe preeclampsia was based on blood pressure criteria.? She was started on magnesium sulfate on the evening of 03/05/23 and received an infusion for 24 hours. Initially during this hospitalization, she had BP elevations below the severe range. Since cessation of magnesium last night, she has had two minimally elevated diastolic BPs in the 90s. She HELLP labs were followed throughout her hospital stay. She had mild elevation of transaminases, but these are trending down on hospital day 3. Today, she has a mild headache, but it has improved greatly. She has scant bleeding. She otherwise has no complaints. Labs Labs: Laboratory Tests 03/07/23 03/06/23 03/05/23 Range/Units 07:00 10:37 22:15 WBC 6.52 7.25 (4.50-11.00) K/uL RBC 4.16 4.11 (4.00-5.20) m/uL Hgb 13.3 13.4 (12.0-16.0) gm/dL Hct 39.0 38.4 (33.0-51.0) % MCV 94 93 (80-100) fL MCH 32 33 (26-34) pg MCHC 34 35 (32-36) gm/dL RDW Coeff of Anmol 11.9 12.1 (11.5-15.5) % Plt Count 204 217 (140-440) K/uL Neut % (Auto) 68.2 71.5 (42.0-72.0) % Lymph % (Auto) 22.2 21.8 (20-44) % [place] % (Auto) 6.6 5.0 (0.0-11.0) % Eos % (Auto) 2.5 1.5 (0.0-7.0) % Baso % (Auto) 0.3 0.1 (0.0-3.0) % Neut # (Auto) 4.45 5.18 (1.7-7.0) K/uL Lymph # (Auto) 1.45 1.58 (0.90-2.90) K/uL [place] # (Auto) 0.40 0.40 (0.00-0.90) K/UL Eos # (Auto) 0.16 0.11 (0.00-0.50) K/uL Baso # (Auto) 0.02 0.01 (0.00-0.30) K/uL BUN 13 10 (5-24) mg/dL Creatinine 0.6 (0.5-1.5) mg/dL Estimated Creat Clear 132.02 Estimated GFR 120 ml/min AST 38 H 57 H (12-35) U/L ALT 36 H 41 H (4-35) U/L Total Creatine Kinase 103 (41-117) U/L Urine Creatinine 18.8 mg/dL Protein/Creatinin Ratio 0.90 H (0-0.19) Urine Total Protein 18 mg/dL 03/05/23 Range/Units 20:58 WBC 8.03 (4.50-11.00) K/uL RBC 3.99 L (4.00-5.20) m/uL Hgb 13.0 (12.0-16.0) gm/dL Hct 37.7 (33.0-51.0) % MCV 95 (80-100) fL MCH 33 (26-34) pg MCHC 35 (32-36) gm/dL RDW Coeff of Anmol (11.5-15.5) % Plt Count 199 (140-440) K/uL Neut % (Auto) (42.0-72.0) % Lymph % (Auto) (20-44) % [place] % (Auto) (0.0-11.0) % Eos % (Auto) (0.0-7.0) % Baso % (Auto) (0.0-3.0) % Neut # (Auto) (1.7-7.0) K/uL Lymph # (Auto) (0.90-2.90) K/uL [place] # (Auto) (0.00-0.90) K/UL Eos # (Auto) (0.00-0.50) K/uL Baso # (Auto) (0.00-0.30) K/uL BUN 14 (5-24) mg/dL Creatinine 0.7 (0.5-1.5) mg/dL Estimated Creat Clear 113.16 Estimated GFR 116 ml/min AST 49 H (12-35) U/L ALT 40 H (4-35) U/L Total Creatine Kinase (41-117) U/L Urine Creatinine mg/dL Protein/Creatinin Ratio (0-0.19) Urine Total Protein mg/dL OB Problem List Additional Plan (1) Severe pre-eclampsia, : Problem details: Readmission 03/05 - 03/07/23 for IV magnesium sulfate Status: Acute DS: Summary Vital Signs Vital Signs: Vital Signs Temp Pulse Resp BP Pulse Ox O2 Del Method 03/07/23 08:00 97.8 F 82 16 135/90 H 98 Room Air 03/07/23 06:00 70 18 125/92 H 98 Room Air 03/07/23 02:00 70 16 117/88 94 Room Air 03/07/23 00:00 97.9 F 78 18 121/86 99 Room Air 03/06/23 22:54 16 03/06/23 20:00 97.9 F 72 16 112/82 98 Room Air 03/06/23 16:00 97.8 F 74 16 129/85 96 Room Air 03/06/23 15:00 74 16 03/06/23 12:00 18 126/86 98 Room Air Discharge Examination Physical Examination findings: Gen - NAD Heart - RRR / no murmur / rub / gallop Lungs - CTAB Abd - soft, NT, fundus well below umbilicus LE - no edema or erythema
[2023-03-07] MEDS: NIFEdipine 30 MG TAB.ER.24 PO (11:04)
--- NOTE | 2023-03-07 12:25 | PC.NURSE ---
shift note: pt up indept in room. pt states she continues to have frontal WILKS 12/22. pt medicated with ibuprofen and tylenol q3hrs. Ice pack provided for WILKS. Pt vss within limits per d.o. LS clr. Clonus negative. pt tolerating diet. IV removed Lt AC intact. Reviewed dc instructions with pt. pt expressed concern of new medication. ticket writer addressed concerns and gave pt contact number for OB and Med/surg unit if further questions/concerns. BP cuff given to pt at dc from OB. Reviewed cuff function with pt and to record BP on provided flowsheet to bring to Dr. Hernández on next visit. Pt will call [facility] ([facility] [place] on thursday to arrange f/u with Dr. Hernández thu or . Appoint made for post made for 03/18/23. Pt recieved 1000mg tylenol for ongoing WILKS prior to dc. Belongings reviewed and sent with pt at wi.
== END 2023-03-07 11:40 | disposition home or self-care (01) | DRG 561 ==
LOC: ED 21:10 → MEDSURG 21:11
PROVIDERS: Obstetrics & Gynecology; Admitting Provider Obstetrics & Gynecology; Emergency Provider Obstetrics & Gynecology; Visit Provider Obstetrics & Gynecology
DX: O14.15 Severe pre-eclampsia, complicating the puerperium (principal)
CPT/HCPCS: 36415; 82550; 82565; 82570; 84156; 84450; 84460; 84520; 85025; 85027; A9270; J3475; J7120

== ENCOUNTER 2024-03-31 10:49 | Outpatient (CLI) | payer BC, SELFPAY | END 2024-03-31 10:50 | disposition home or self-care (01) | PROVIDERS: Visit Provider Registered Nurse | DX: Z13.220 Encounter for screening for lipoid disorders (principal) | CPT/HCPCS: 80061 ==